=== PATIENT | male | born 1970 | race Caucasian/White ===

== ENCOUNTER → 2018-02-22 12:37 | Outpatient (CLI) | payer BC | END | disposition home or self-care (01) | LOC: D.RAD 12:37 | DX: S43.432A Superior glenoid labrum lesion of left shoulder, initial encounter (principal); X58.XXXA Exposure to other specified factors, initial encounter ==

== ENCOUNTER 2018-04-06 05:30 | Day surgery (SDC) | payer BC ==
[2018-04-05 18:15] LABS: HEMOGLOBIN 15.1 g/dL (13.5-17.5); MCHC 35.1 g/dL (31.0-37.0); MCV 91.1 fL (80.0-100.0); MEAN PLATELET VOLUME 9.2 fL (7.4-10.4); RBC 4.72 10x6/uL (4.20-6.10); RDW 12.9 % (11.5-14.5); WBC 7.1 10x3/uL (4.8-10.8)
[~2018-04-06] VITALS: Ht 182.9 cm; Wt 108.9 kg
[2018-04-06] MEDS ORDERED: LISINOPRIL10 MG PO (06:07)
[2018-04-06] MEDS ORDERED: TOPROL XL25 MG (06:08)
[2018-04-06] MEDS ORDERED: CELEBREX200 MG PO (06:10)
[2018-04-06 06:42] VITALS: BP 118/83; Ht 182.9 cm; Wt 108.9 kg
[2018-04-06] MEDS ORDERED: PERCOCET 7.5/321 TAB PO (09:17)
--- NOTE | 2018-04-06 11:56 | OP ---
PATIENT NAME: LEONRADA BROWN MEDICAL RECORD: [id number] :66 LOCATION:[facility] ADMISSION DATE: SURGEON: GEOVANI ATKINS DO DATE OF OPERATION: 04/06/2018 PROCEDURE PERFORMED: Left shoulder arthroscopy with biceps tenotomy, labral debridement, subacromial decompression. PREOPERATIVE DIAGNOSES: Left shoulder superior labrum anterior and posterior tear, subacromial impingement. POSTOPERATIVE DIAGNOSES: Left shoulder superior labrum anterior and posterior tear, subacromial impingement. 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 This was quite a few months ago, maybe 6 months ago. He tried to nurse it along without any treatment. He finally came to me in December and said it had been going on for a long time and could not tolerate the lifting and the pain. Upon exam, it indicated he probably had a SLAP tear and possible rotator cuff tear. He got an MR arthrogram. MR arthrogram of his left shoulder indeed showed a large SLAP tear and the biceps tendon had split. He did show a raise of the partial surface on the cortical insertion of the rotator cuff tendon; however, was not full thickness tear of the supraspinatus. After having a discussion with him and saying that we could probably do a biceps tenodesis and may be the tear was large enough, we would do a rotator cuff repair and use Regeneten; however, if it was not, we would not. This was in December and he scheduled it for today due to his work schedule. He is aware of the risks and benefits of the procedure including infection, bleeding, damage to nerves and vessels, need for further surgery. He signed the consent. SURGEON: Geovani Atkins DO DESCRIPTION OF PROCEDURE: The patient was given a block by anesthesia in the preoperative area and taken to the operative suite, laid in the right lateral decubitus position. He was given 900 mg of clindamycin preoperatively. The timeout was performed and he was prepped and draped in sterile fashion. Once everyone was ready, the 18-gauge needle was inserted through the posterior portal site and the shoulder joint was then insufflated with 60 mL of normal saline. The posterior portal was then established with an 11-blade scalpel and the trocar was entered into the joint. The camera was then entered and the inspection began of the joint. A large SLAP tear was seen at the glenoid labrum and biceps tendon was attached to it. The anterior portal was then established with an 18-gauge spinal needle and a burner was brought in through the anterior portal. The bicep tenotomy was done at that time as well as a labral debridement. There were no loose bodies seen in the joint. The inferior gutter was inspected. No loose body was seen there. The rotator cuff was inspected at that time supraspinatus. There were no full thickness tears seen on the articular surface and the subscapularis tendon was inspected as well. It was in good shape. No tear seen in that. The scope was then removed from the shoulder and taken to the subacromial space. There was a significant amount of bursitis and inflammation there and then lateral portal was established with an 18-gauge spinal needle and a trocar and an 11-blade scalpel. The shaver was then brought in to clean out the inflammation. A bursectomy and subacromial decompression was done at that time. The acromion was seen to have a small spur on and this OPERATIVE REPORT [id number] LEONARDA BROWN was taken off with a bur. The AC joint was checked and it had not completely come together. There were no large spurs seen on the clavicle. I did not do a distal clavicle excision at that time due to the fact it had good mobility and was not impacting on the acromion. The scope was then removed and the biceps tenotomy or tenodesis site incision was made on the anterior humerus. Careful dissection was made down to the bicep tendon between the deltoid and the pec tendon. A small incision was made to expose the biceps tendon. The bicep tendon was then encountered. The long head of bicep tendon was encountered and a 90-degree hemostat was used to look under it and pulled with somewhat quite a bit of force and the tendon did not come out of the groove. This was traced up into the groove and was attempted to be released at that time and did not release. The scope was then put back into the shoulder thinking that maybe there were some fibers in the bicep that were left that had not been cut. This was not the case and then back in the subacromial space to see if there was anything that could be released there. This was not the case either. The bicep tendon had scarred down to where it was likely due to his old tear. The biceps tenodesis site was then irrigated and closed with 2-0 Vicryl and a 4-0 Monocryl ran on the skin, 2-0 Vicryl in inverted interrupted fashion. The portal sites anterior, lateral and posterior were all closed with 4-0 Monocryl in inverted interrupted fashion and Dermabond was placed on all the incisions. Telfa, Tegaderm were placed on the incisions. The patient was then awakened and taken to recovery in stable condition. Then, 0.5% Marcaine 10 mL was injected around the bicep tenodesis incision for pain control. He was awakened and taken to recovery in stable condition. BLOOD LOSS: Minimal. COMPLICATIONS: None. TRANSINT:[id number] Voice Confirmation ID: [id number] DOCUMENT ID: [id number] GEOVANI ATKINS DO at 1156 CC: [id number] DICTATION DATE: 04/06/18924 HIGH SCALER: 04/06/18 1020 [facility] 04/06/18 [facility] [address] [place] [address]
== END 2018-04-06 11:20 | disposition home or self-care (01) ==
LOC: D.OPS 05:30 → D.PAN 07:30 → D.OPS 11:20 → D.PAN 15:00
PROVIDERS: Anesthesiology
DX: S43.432A Superior glenoid labrum lesion of left shoulder, initial encounter (principal); M75.42 Impingement syndrome of left shoulder; M75.112 Incomplete rotator cuff tear or rupture of left shoulder, not specified as traumatic; X50.9XXA Other and unspecified overexertion or strenuous movements or postures, initial encounter; Z01.812 Encounter for preprocedural laboratory examination

== ENCOUNTER 2019-04-26 08:00 | Outpatient (CLI) | payer BC ==
[2018-04-06 06:42] VITALS: BMI 32.6
[~2019-04-26 08:00] MED LIST: CELEBREX200 MG PO; LISINOPRIL10 MG PO; PERCOCET 7.5/321 TAB PO; TOPROL XL25 MG
== END 2019-04-26 08:01 | disposition home or self-care (01) ==
LOC: D.CT 08:00
PROVIDERS: ATTEND Otolaryngology
DX: H71.21 Cholesteatoma of mastoid, right ear (principal)

== ENCOUNTER → 2019-12-06 13:03 | Outpatient (CLI) | payer BC ==
[2018-04-06 06:42] VITALS: BMI 32.6
== END | disposition home or self-care (01) ==
LOC: D.CT 13:00
PROVIDERS: ATTEND Obstetrics & Gynecology
DX: H60.41 Cholesteatoma of right external ear (principal)